=== PATIENT | male | born 1965 | race Caucasian/White ===

== ENCOUNTER 2017-04-08 18:51 | Emergency (ER) | payer SELFPAY ==
[~2017-04-08] VITALS: Ht 162.6 cm; Wt 92.1 kg
[~2017-04-08 18:51] MED LIST: AMLODIPINE BES2.5 M1; CRESTOR10 M1 PO; FLA500 PO; LAC PO; LEVAQUIN500 MG PO; LOT20 PO; LOTENSIN10 MG PO; NOR10 PO; NOVI SQ; PROZ10 PO
[2017-04-08 19:52] LABS: BASOPHIL % 0.4 % (0-2); PLATELET COUNT 231 x10^3mcL (130-400); RED CELL DISTRIBUTION WIDTH 12.9 % (11.5-14.5)
[2017-04-08 19:55] LABS: CALCIUM 8.2 mg/dL (8.5-10.1); CARBON DIOXIDE 27.2 mmol/L (21-32); CHLORIDE SERUM 103 mmol/L (98-107); CREATININE SERUM 1.7 mg/dL (0.7-1.3); GFR1 45 mL/min; GLUCOSE SERUM 264 mg/dL (74-106); POTASSIUM SERUM 3.8 mmol/L (3.5-5.1); SODIUM SERUM 137 mmol/L (136-145)
[2017-04-08 20:08] LABS: ALKALINE PHOSPHATASE 137 U/L (46-116); ALT/SGPT 18 U/L (16-63); AST/SGOT 17 U/L (15-37); BILIRUBIN TOTAL 0.4 mg/dL (0.20-1.00); HDL CHOLESTEROL 50 mg/dL (40-60); TOTAL PROTEIN, SERUM 6.2 g/dL (6.4-8.2)
[2017-04-08 20:12] LABS: ALBUMIN 2.4 g/dL (3.4-5.0); CHOLESTEROL 333 mg/dL (<200); T4(THYROXINE) 4.4 ug/dL (4.7-13.3)
[2017-04-08 21:43] VITALS: BP 175/70
== END 2017-04-08 21:43 | disposition home or self-care (01) ==
LOC: ED 18:51
PROVIDERS: Emergency Medicine
DX: R41.82 Altered mental status, unspecified (principal); F03.90 Unspecified dementia, unspecified severity, without behavioral disturbance, psychotic disturbance, mood disturbance, and anxiety; E11.65 Type 2 diabetes mellitus with hyperglycemia; I10 Essential (primary) hypertension; Z79.4 Long term (current) use of insulin
CPT/HCPCS: 82962; G0480; Q0092

== ENCOUNTER 2018-12-19 11:51 | Inpatient (IN) | payer OTHER ==
[~2018-12-19] VITALS: Ht 170.2 cm; Wt 76.7 kg
[~2018-12-19 11:51] MED LIST changes: +LIPITOR40 MG PO; +LOP50 PO; +METFORMIN HCL850 MG PO; +NOR5 PO
[2018-12-19 13:00] VITALS: Ht 170.2 cm; Wt 76.7 kg
[2018-12-19 15:24] LABS: BASOPHIL % 0.4 % (0-2); PLATELET COUNT 279 x10^3mcL (130-400)
[2018-12-19 15:42] LABS: CALCIUM 8.4 mg/dL (8.5-10.1); CARBON DIOXIDE 30.6 mmol/L (21-32); CREATININE SERUM 1.7 mg/dL (0.7-1.3); POTASSIUM SERUM 4.2 mmol/L (3.5-5.1)
[2018-12-19 15:46] LABS: BILIRUBIN TOTAL 0.1 mg/dL (0.20-1.00); T4(THYROXINE) 4.7 ug/dL (4.7-13.3)
[2018-12-19 16:17] LABS: microscopic required? YES; urine erythrocyte TRACE (NEGATIVE)
[2018-12-19 17:40] VITALS: BP 160/93
[2018-12-19 18:18] VITALS: BP 160/93
[2018-12-19 19:00] VITALS: BP 168/66
[2018-12-19 19:09] VITALS: BP 172/86
[2018-12-19 21:24] VITALS: BP 166/86
[2018-12-19] MEDS ORDERED: LAXATIVE5 M1 PR (21:50)
[2018-12-19] MEDS ORDERED: OMEPRAZOLE40 M1 GT (21:51)
[2018-12-19] MEDS ORDERED: LISINOPRIL10 MG GT (21:52)
[2018-12-19] MEDS ORDERED: COL-RITE250 MG GT (21:53)
[2018-12-20 00:02] VITALS: BP 144/90
[2018-12-20 05:45] VITALS: BP 148/87
[2018-12-20 06:27] LABS: CALCIUM 7.9 mg/dL (8.5-10.1); CARBON DIOXIDE 26.9 mmol/L (21-32); CREATININE SERUM 1.7 mg/dL (0.7-1.3); POTASSIUM SERUM 3.9 mmol/L (3.5-5.1)
[2018-12-20 07:07] LABS: BASOPHIL % 0.5 % (0-2); PLATELET COUNT 230 x10^3mcL (130-400); RED CELL DISTRIBUTION WIDTH 13.8 % (11.5-14.5)
[2018-12-20 08:00] VITALS: BP 145/83
[2018-12-20 12:52] VITALS: BP 145/81
[2018-12-20 16:03] VITALS: BP 150/70
[2018-12-20 20:34] VITALS: BP 130/82
[2018-12-21 05:23] VITALS: BP 154/82
[2018-12-21 08:34] VITALS: BP 148/81
[2018-12-21 13:35] VITALS: BP 147/89
[2018-12-21 15:56] VITALS: BP 150/94
[2018-12-21 17:40] VITALS: BP 150/94
[2018-12-21] MEDS ORDERED: AUG250L GT (17:50)
[2018-12-21] MEDS ORDERED: VENTOLIN H0.09 MG/A1 INH (17:51)
== END 2018-12-21 18:54 | disposition home health service (06) | DRG 137 ==
LOC: ED 11:51 → DU 16:54
PROVIDERS: Emergency Medicine; ADMIT Internal Medicine
DX: J69.0 Pneumonitis due to inhalation of food and vomit (principal); J96.01 Acute respiratory failure with hypoxia; E11.22 Type 2 diabetes mellitus with diabetic chronic kidney disease; N18.3 Chronic kidney disease, stage 3 (moderate); I12.9 Hypertensive chronic kidney disease with stage 1 through stage 4 chronic kidney disease, or unspecified chronic kidney disease; E78.00 Pure hypercholesterolemia, unspecified; J45.909 Unspecified asthma, uncomplicated; D64.9 Anemia, unspecified; Z66 Do not resuscitate; Z93.1 Gastrostomy status; Z74.01 Bed confinement status; Z79.84 Long term (current) use of oral hypoglycemic drugs; I69.354 Hemiplegia and hemiparesis following cerebral infarction affecting left non-dominant side; Z90.49 Acquired absence of other specified parts of digestive tract; Z83.3 Family history of diabetes mellitus; Z23 Encounter for immunization
CPT/HCPCS: 36600; 82962; 83880; 90658; 90732; 92526-GN; 92610; J1644; J2543; J7030; J7050; J7620; J7626; Q0092

== ENCOUNTER 2019-06-19 06:50 | Day surgery (SDC) | payer OTHER ==
[~2019-06-19] VITALS: Ht 165.1 cm; Wt 68.0 kg
[~2019-06-19 06:50] MED LIST changes: +AUG250L GT; +COL-RITE250 MG GT; +LAXATIVE5 M1 PR; +LISINOPRIL10 MG GT; +OMEPRAZOLE40 M1 GT; +VENTOLIN H0.09 MG/A1 INH
[2019-06-19 07:29] VITALS: BP 171/103
[2019-06-19 10:18] VITALS: BP 185/106
== END 2019-06-19 09:45 | disposition home or self-care (01) ==
LOC: DS 06:50 → OR 08:00 → GI 08:00 → DS 09:45
PROVIDERS: Internal Medicine Gastroenterology
PROC: 0D20XUZ Change Feeding Device in Upper Intestinal Tract, External Approach (ICD-10-PCS; principal; 2019-06-19 08:00)
DX: K94.23 Gastrostomy malfunction (principal); I69.391 Dysphagia following cerebral infarction; I69.354 Hemiplegia and hemiparesis following cerebral infarction affecting left non-dominant side; R13.10 Dysphagia, unspecified; F01.50 Vascular dementia, unspecified severity, without behavioral disturbance, psychotic disturbance, mood disturbance, and anxiety; I10 Essential (primary) hypertension; E11.9 Type 2 diabetes mellitus without complications; Z99.3 Dependence on wheelchair; Z90.49 Acquired absence of other specified parts of digestive tract; Z68.25 Body mass index [BMI] 25.0-25.9, adult
CPT/HCPCS: 43760

== ENCOUNTER 2020-05-31 07:35 | Inpatient (IN) | payer OTHER ==
[~2020-05-31] VITALS: Ht 170.2 cm; Wt 60.0 kg
[2020-05-31 07:36] VITALS: Ht 170.2 cm; Wt 60.0 kg
--- NOTE | 2020-05-31 07:45 | NUR ---
PT BIBA/FIRE C/O SOB, PER [facility] CONTA[facility]ED [facility], PT WITH RESPIRATORY DISTRESS, PER FAMILY PT WAS BREATHING FAST, ACCORDING TO [facility], PT WAS ADMITTED TO [facility] 8 DAYS AGO WITH A DIAGNOSES OF PNEUMONIA, RALES NOTED UPON AUSCULATION, RR 35 ON SCENE WITH A BS OF 46, PT 02 SAT AT 35%-42% RA, PLACED ON HIGH OXYGEN FLOW, 02 SAT INCREASED TO 94%, GLUCAGON WAS ADMINISTERED ON SCENCE, PT HAS A HX OF [facility], DM, BED-BOUND, TO COME WITH MEDICATION LIST, PT ALSO NOTED TO BE RECEIVING DIALYSIS, UKNOWN OF WHAT DAYS AT THIS TIME, DIALYSIS SHUNT NOTED ON RIGHT UPPER CHEST, G TUBE NOTED ON MID ABDONINAL REGION, UPON ARRIVAL, PT PLACED IN T1, RT AT BEDSIDE WITH BIPAP, IV ACESS UNOBTAINABLE, MADE AWARE, BS UPON ARRIVAL 39, MADE AWARE, CURRENT RR 32, 02 SAT 100% ON BIPAP, SAFETY PRECAUTIONS IN PLACE, WILL MONITOR,
--- NOTE | 2020-05-31 07:46 | NUR ---
PER [facility], IT WAS REPORTED THAT PT WAS SWABBED FOR COVID AND HAS A NEGATIVE RESULT, DATE AND TIME OF SWAB UNKNOWN, STATES SOMETIME LAST WEEK,
--- NOTE | 2020-05-31 07:49 | NUR ---
DR KIRKLAND AND RT AT BEDSIDE WITH ABG DRAW
--- NOTE | 2020-05-31 07:53 | NUR ---
DR KIRKLAND AT BEDSIDE WITH ULTRASOUND GUIDED IV INSERTION, UNSUCCESSFUL, REQUESTING FOR CENTRAL LINE SET UP, ORDERS CARRIED OUT
--- NOTE | 2020-05-31 08:13 | NUR ---
DR KIRKLAND AT BEDSIDE WITH CENTRAL LINE INSERTION
--- NOTE | 2020-05-31 08:42 | NUR ---
CENTRAL LINE SUCCESSFUL, 7 FR, 3 LUMEN, 20 CM CATHETER, TO THE LEFT SUBCLAVIAN, VERBAL ORDER FOR X RAY, NICOL HIGHTOWER CONTACTED X RAY STAT,
[2020-05-31 09:13] LABS: PLATELET COUNT 301 x10^3mcL (130-400)
[2020-05-31 09:21] LABS: RED CELL DISTRIBUTION WIDTH 14.9 % (11.5-14.5)
--- NOTE | 2020-05-31 10:01 | NUR ---
ALL WOUNDS DOCUMENTED AND PICTURES TAKEN. PRESSURE ULCER NOTED TO B/L HIPS AND SACRAL. SCAB NOTED TO MIDDLE BACK AND RIGHT HEAL. OPTIFOAM APPLIED TO LEFT HIP, SACRAL AND B/L HEALS. PRESSURE REDISTRIBUTED TO RIGHT SIDE, LEFT ARM AND B/L HEALS WITH PILLOW. DR. KIRKLAND MADE AWARE OF WOUND. FOUL SMELL NOTED TO RIGHT HIP PRESSURE ULCER.
--- NOTE | 2020-05-31 10:04 | NUR ---
PER , NO CHEST COMPRESSION OR INTUBATION. WILL HAVE SIGN FORM. OUTSIDE AT THIS TIME WAITING TO SEE PT. DR. KIRKLAND AWARE OF 'S WISHES
[2020-05-31 10:06] LABS: UA SPECIFIC GRAVITY 1.015 (1.005-1.035); microscopic required? YES; urine erythrocyte 3+ (NEGATIVE)
[2020-05-31 10:28] LABS: BAND NEUTROPHIL 15 % (0-10); MONOCYTE 2 % (0-7); SEGMENTED NEUTROPHILS 81 % (37-75); rbc morphology (normal/abnorm) ABNORMAL (NORMAL)
--- NOTE | 2020-05-31 10:28 | NUR ---
AT BEDSIDE, SIGNED POLST FORM. STATED PT WAS DOING GOOD LAST NIGHT THEN AFTER 0700 TODAY STARTED LABOR BREATHING AND O2 WENT DOWN TO 35%. STATES PT HAS BEEN VERY FLEMMY AND COUGHING OVER PAST 4 DAYS. AT BASELINE PT IS UNABLE TO SPEAK D/T PAST CVA AND IS NORMALLY UNABLE TO FOLLOW COMMANDS. PER , PT HAS A FISTULA TO RIGHT FOREARM THAT WAS PUT IN IN JANUARY BUT RIGHT SUBCLAVIAN IS WHAT IS CURRENLTY BEING USED FOR DIALYSIS. LAST DIALYSIS WAS YESTERDAY. WILL CONTINUE TO MONITOR.
[2020-05-31 10:29] LABS: PLATELET MORPHOLOGY PLATELETS NORMAL
[2020-05-31 10:42] LABS: CALCIUM 7.6 mg/dL (8.5-10.1); CARBON DIOXIDE 25.1 mmol/L (21-32); CREATININE SERUM 2.1 mg/dL (0.7-1.3); POTASSIUM SERUM 3.3 mmol/L (3.5-5.1)
[2020-05-31 10:47] LABS: ALBUMIN 1.1 g/dL (3.4-5.0); BILIRUBIN TOTAL 0.4 mg/dL (0.20-1.00); TOTAL PROTEIN, SERUM 5.5 g/dL (6.4-8.2)
--- NOTE | 2020-05-31 11:31 | NUR ---
TURNED AND REPOSITIONED PT TO LEFT SIDE. PRESSURE REDISTRIBUTED PILLOW TO SCARAL, B/L ELBOWS AND B/L HEALS. PT LOOKS TO BE IN NO ACUTE DISTRESS AT THIS TIME. WILL CONTINUE TO MONITOR.
[2020-05-31] MEDS ORDERED: CLONIDINE HYDR0.1 M1 PO (12:59)
[2020-05-31] MEDS ORDERED: HYDRALAZINE HCL25 MG PO (13:00)
[2020-05-31] MEDS ORDERED: METOPROLOL TART25 M1 PO (13:00)
[2020-05-31] MEDS ORDERED: ADALAT CC30 MG PO (13:01)
[2020-05-31] MEDS ORDERED: MICROZIDE12.5 MG PO (13:01)
--- NOTE | 2020-05-31 14:24 | NUR ---
PT NOTED RESTING ON RIGHT SIDE IN ER NEPTALI FLORES AT THIS TIME, NO AD NOTED. SIDE RAILS UP X 2 FOR SAFETY. WILL CONTINUE TO MONITOR.
--- NOTE | 2020-05-31 15:07 | NUR ---
TURNED AND REPOSITIONED PT, PT TURNED TO LEFT SIDE. POSITIONED WITH PILLOW AND REDISTRIBUTED WITH PILLOW UNDER B/L HEALS AND ELBOW. PT LOOKS TO BE IN NO ACUTE DISTRESS AT THIS TIME. WILL CONTINUE TO MONITOR.
--- NOTE | 2020-05-31 17:57 | NUR ---
TURNED AND REPOSITIONED PT WITH PILLOW. TURNED PT TO LEFT SIDE WITH PILLOW. B/ HEALS AND ELBOWS REDISTRIBUTED WITH PILLOW. MADE PT COMFORTABLE IN BED. PT LOOKS TO BE IN NO ACUTE DISTRESS AT THIS TIME. WILL CONTINUE TO MONITOR.
--- NOTE | 2020-05-31 19:17 | NUR ---
RECEIVED PT REPORT FROM DOMINIQUE BRIAN. I WILL NOW ASSUME PRIMARY CARE OF THE PT
--- NOTE | 2020-05-31 19:20 | NUR ---
ENDORSED TO NIGHT NURSE.
--- NOTE | 2020-05-31 19:24 | NUR ---
PT LAYING ON RT SIDE IN ED GURNEY THIS TIME. PT HAS PILLOWS UNDER BONY PROMINENCES. PT IS ABLE TO OPEN HIS EYES BUT DOES NOT SPEAK OR FOLLOW COMMANDS. PT IS ON BIPAP AT THIS TIME. PT APPEARS TO BE TOLERATING BIPAP WELL, NO GRIMACING NOTED. TUYET CHEST RISE AND FALL NOTED. NO MEDICATIONS ARE RUNNING AT THIS TIME, AWAITING ADMITTING ORDERS.
--- NOTE | 2020-05-31 21:37 | NUR ---
NOTED PTS BP IS NOT ELEVATED AT THIS TIME, WILL HOLD BP MEDICATION. AND NOTIFY ADMITTING
--- NOTE | 2020-05-31 21:39 | NUR ---
PT REPOSITIONED FOR COMFORT. PT MAKES MOANING NOISES WHILE REPOSITIONING. PT IS ALERT BUT DOES NOT RESPOND OR FOLLOW COMMANDS. PT TOLERATING BIPAP WELL. RESPS ARE E/U. TUYET CHEST RISE AND NOTED. WILL CONTINUE TO MONITOR
--- NOTE | 2020-05-31 21:56 | NUR ---
SPOKE WITH DR ZEPEDA ABOUT PTS BP MEDICATION. INFORMED THE DR THAT THE PTS BP IS WITHIN NORMAL LIMITS AND HAS BEEN TRENDING LOW. WE BOTH AGREED TO HOLD THE MEDICATIONS AT THIS TIME
--- NOTE | 2020-05-31 23:40 | NUR ---
PT REPOSITIONED FOR COMFORT AND TO PREVENT PRESSURE ULCERS. PT MOVED TO LEFT SIDE. PILLOWS PLACED UNDER TONYA PROMINENCES. PT TOLERATING BIPAP WELL. UTYET CHEST RISE AND FALL NOTED. COMFORT MEASURES IN PLACE. WILL CONTINUE TO MONITOR
--- NOTE | 2020-06-01 00:20 | NUR ---
CALLED RESIDENT PEDIATRIC GENETICIST, SPOKE TO DR LIMON, TO CLARIFY ZOSYN 4.5GM ORDER. REPORTS THAT SHE WILL CALL BACK TO CLARIFY ORDER.
--- NOTE | 2020-06-01 02:45 | NUR ---
PT IS RESTING IN ED GURNEY STILL CONTINURING ON BIPAP. PT IS TOLERATING BIPAP WELL. BEIL CHEST RISE AND FALL NOTED. PT IS ALERT WHEN STIMULATED WITH TOUCH AND VOICE BUT DOES NOT RESPOND.
--- NOTE | 2020-06-01 03:17 | NUR ---
SPOKE WITH RESIDENT, DR LIMON, AND I WAS INFORMED THAT THE ZOZYN ORDER WITH NOW BE D/C.
--- NOTE | 2020-06-01 04:04 | NUR ---
SHIRA BRIAN AND MYSELF REPOSITIONED THE PT ONTO THE PT LEFT SIDE. PT HAS PILLOWS UNDER TONYA PROMINENCES. TUYET CHEST RISE AND FALL NOTED. WILL CONTINUE TO MONITOR
--- NOTE | 2020-06-01 06:56 | NUR ---
REPOSITIONED PT TO MAINTAIN COMFORT. TUYET CHEST RISE AND FLL NOTED. PT EYES OPEN WITH VERBAL STIMULI, BUT PT DOES NOT RESPOND. WILL CONTINUE TO MONITOR
--- NOTE | 2020-06-01 07:14 | NUR ---
RECEIVED REPORT FROM SNEHAL YANG FOR CONTINUED CARE OF PATIENT.
--- NOTE | 2020-06-01 09:09 | NUR ---
PATIENT REPOSITIONED WITH PILLOWS FOR COMFORT. NO SS OF DISTRESS NOTED. WILL CONTINUE TO MONITOR.
[2020-06-01 09:18] LABS: CALCIUM 8.2 mg/dL (8.5-10.1); CARBON DIOXIDE 23.4 mmol/L (21-32); CREATININE SERUM 2.5 mg/dL (0.7-1.3); MAGNESIUM 2.1 mg/dL (1.8-2.4); PHOSPHOROUS 3.2 mg/dL (2.5-4.9); POTASSIUM SERUM 3.6 mmol/L (3.5-5.1)
--- NOTE | 2020-06-01 09:21 | NUR ---
SPOKE WITH MRS. ZAVALETA, SHE ADVISED THAT THE RIGHT ARM SWELLING IS DUE TO THE FISTULA PLACED IN JANUARY. ACCORDING TO THE , PATIENTS PCP STATES THAT THE FISTULA IS NOT TO BE USED DUE TO HIM BEING EXTREMELY WEAK. HE GOES TO DIALYSIS [place] AND [place]. PROVIDED AND UPDATE TO AND SHE WAS APPRECIATIVE OF THE INFORMATION.
[2020-06-01 09:29] LABS: PLATELET COUNT 352 x10^3mcL (130-400); RED CELL DISTRIBUTION WIDTH 15.4 % (11.5-14.5)
--- NOTE | 2020-06-01 09:58 | NUR ---
LEFT MESSAGE FOR TO RETURN MY CALL: REGARDING GT ADAPTOR
--- NOTE | 2020-06-01 10:00 | NUR ---
PATIENT RESTING IN A POSITION OF COMFORT. NO DISTRESS NOTED.
--- NOTE | 2020-06-01 10:17 | NUR ---
MEDICATED PER MD ORDERS- SEE EMR
--- NOTE | 2020-06-01 10:30 | NUR ---
PATIENTS BROUGHT SYRINGE FOR PATIENTS GT. PLEASE DON'T THROW AWAY-
--- NOTE | 2020-06-01 11:45 | NUR ---
PATIENT REPOSITIONED FOR COMFORT-- VSS, NAD NOTED.
--- NOTE | 2020-06-01 12:04 | NUR ---
MEDICATED PER MD ORDERS- SEE EMR
--- NOTE | 2020-06-01 14:00 | NUR ---
PATIENT REPOSITIONED IN A POSITION OF COMFORT. NO DISTRESS NOTED. WILL CONTINUE TO MONITOR.
[2020-06-01 14:30] LABS: BAND NEUTROPHIL 13 % (0-10); MONOCYTE 2 % (0-7); SEGMENTED NEUTROPHILS 81 % (37-75)
[2020-06-01 14:31] LABS: PLATELET MORPHOLOGY PLATELETS NORMAL; rbc morphology (normal/abnorm) ABNORMAL (NORMAL)
--- NOTE | 2020-06-01 15:34 | NUR ---
PATIENT SLEEPING, EQUAL CHEST RISE AND FALL-- WILL CONTINUE TO MONITOR. VSS, NAD NOTED.
--- NOTE | 2020-06-01 16:12 | NUR ---
PROVIDED REPORT TO DR PETERSON, PULMONOLGY ON PATIENT STATUS.
--- NOTE | 2020-06-01 18:11 | NUR ---
PATIENT REPOSITIONED TO A POSITION OF COMFORT. PILLOWS PLACED UNDER BONY PROMINENCES AND HEELS LIFTED TO AVOID ADDITIONAL PRESSURE ULCERS. VSS, NAD NOTED, WILL CONTINUE TO MONITOR.
--- NOTE | 2020-06-01 19:12 | NUR ---
PROVIDED REPORT TO SNEHAL YANG FOR CONTINUED CARE OF PATIENT.
--- NOTE | 2020-06-01 19:15 | NUR ---
RECEIVED PT REPORT FROM SKYLAR BRIAN. I WILL NOW ASSUME PRIMARY CARE OF THE PT
--- NOTE | 2020-06-01 20:10 | NUR ---
GAVE PT REPORT TO SNEHAL MARRUFO IN THE ICU TO ASSUME PRIMARY CARE OF THE PT
--- NOTE | 2020-06-01 20:16 | NUR ---
SPOKE WITH PTS AND INFORMED HER ABOUT PT MOVING TO ICU AND CARE UPDATE. PT VERBALIZED UNDERSTANDING
--- NOTE | 2020-06-01 20:55 | NUR ---
PT TAKEN TO ICU BED 8 VIA ED SANDRA. PT ESCORTED BY MYSELF AND LORIN EMT. NO INCIDENCE NOTED DURING TRANSPOT
--- NOTE | 2020-06-01 21:00 | NUR ---
RECEIVED PT FROM ER VIA GURNEY ACCOMPANIED BY RN AND EMT. PT WAS TRANSFERRED TO ICU BED 8 WITH NO COMPLICATIONS. PT CONNECTED TO FULL MARINE FITTER/CONTINOUS PULSE OXIMETRY, VITALS READING: NIBP 117/69 MAP 95, HR 77, RR 14, SPO2 100%, RECTAL TEMP 94.5. PT IS NONVERBAL AT BASELINE. UNABLE TO FOLLOW SIMPLE COMMANDS/MAKE NEEDS KNONW. OPENS EYES TO TACTILE STIMULI, UNABLE TO TRACK. LEFT SUBCLAVIAL CVC, TLC, INTACT/SECURED, DRESSING CDI. PT'S BREATHING IS E/U ON 15 LPM VIA NONREBREATHER. LUNGS SOUND DIMIN BILAT. SYMMETRICAL CHEST EXPANSION NOTED. NO S/S OF RESP DISTRESS NOTED. SKIN IS COOL AND DRY. +4 EDEMA NOTED TO RUE. PT BEDBOUND, TOTAL CARE. ABD IS SOFT/FLAT, NONTENDER TO PALPATION. BOWEL SOUNDS ACTIVE X4 QUADRANTS. PT HAD A SMALL SOFT BROWN BM, PERICARE PROVIDED. PEG NOTED TO LUQ. F/C INTACT/SECURED, DRAINING VIA GRAVITY WITH BROWN CLOUDY COLORED URINE. RIGHT UPPER CHEST DIALYSIS PORT, DRESSING CDI. PRESSURE ULCER NOTED TO SACRAL AREA, RIGHT HIP, AND LEFT HIP, OPTIFOAM PLACED. DTI NOTED TO BILAT HEELS, OPTIFOAM IN PLACE, FLEX BOOTS IN PLACE, ISOFLEX MATTRESS IN PLACE. EXTREMITIES OFFLOADED FOR PRESSURE RELIEF. BED IN LOW POSITION. CALL LIGHT IN REACH.
[2020-06-01 21:40] VITALS: BP 117/69
[2020-06-01 21:54] VITALS: BP 104/64
[2020-06-01 23:00] VITALS: BP 120/70
--- NOTE | 2020-06-02 01:30 | NUR ---
PT IS SLEEPING, EASILY AROUSABLE. NO S/S OF ACUTE DISTRESS NOTED. NONREBREATHER TITRATED TO 10 LPM. TOLERATING WELL. SPO2 99%
[2020-06-02 03:05] VITALS: BP 126/69
--- NOTE | 2020-06-02 03:45 | NUR ---
PT PLACED ON SIMPLE MASK @ 6LPM WITH SPO2 READING 100%. WILL CONT TO MONITOR
--- NOTE | 2020-06-02 05:00 | NUR ---
PT PLACED ON 2 LPM VIA NC. PT'S SPO2 97%. NO S/S OF RESP DISTRESS NOTED. TOLERATING WELL
--- NOTE | 2020-06-02 05:50 | NUR ---
UNABLE TO CONNECT TUBE FEEDING TO PEG TUBE WITHOUT ADAPTOR. PT BOLUSED WITH 60 ML OF NEPRO TUBE FEEDING FOLLOWED BY 60 CC OF WATER.
[2020-06-02 06:09] LABS: BASOPHIL % 0.1 % (0-2); PLATELET COUNT 332 x10^3mcL (130-400)
[2020-06-02 06:27] LABS: RED CELL DISTRIBUTION WIDTH 15.3 % (11.5-14.5)
[2020-06-02 07:06] LABS: CARBON DIOXIDE 22.3 mmol/L (21-32); CREATININE SERUM 2.7 mg/dL (0.7-1.3); MAGNESIUM 2.1 mg/dL (1.8-2.4); PHOSPHOROUS 3.7 mg/dL (2.5-4.9); POTASSIUM SERUM 3.6 mmol/L (3.5-5.1)
--- NOTE | 2020-06-02 07:10 | NUR ---
REPORT GIVEN TO ABIGAIL BRIAN FOR CONTINUITY OF CARE. ALL QUESTIONS/CONCERNS ADDRESSED. ENDORSING ALL CARE
[2020-06-02 07:12] LABS: ALBUMIN 1.1 g/dL (3.4-5.0); C REACTIVE PROTEIN 13.4 mg/dL (<=0.9)
[2020-06-02 12:15] VITALS: BP 117/69
[2020-06-02 14:00] VITALS: BP 119/71
--- NOTE | 2020-06-02 14:30 | NUR ---
MD JAVIER AT BEDSIDE, NEW ORDERS FOR HD TOMORROW (06/03)
--- NOTE | 2020-06-02 14:38 | NUR ---
LATE ENTRY MD TIRADO & RESIDENT TEAM AT BEDSIDE, NO NEW ORDERS AT THIS TIME, AWAITING TRANSFER TO [facility]
--- NOTE | 2020-06-02 17:26 | NUR ---
MD VIZCARRA UPDATED VIA TELEPHONE, NO NEW ORDERS AT THIS TIME
--- NOTE | 2020-06-02 18:29 | NUR ---
MD BROWN AT BEDSIDE AND UPDATED ON PT STATUS.
--- NOTE | 2020-06-02 19:08 | NUR ---
REPORT GIVEN TO TREY BRIAN AND ALL QUESTIONS ANSWERED.
--- NOTE | 2020-06-02 19:10 | NUR ---
RECEIVED REPORT FROM COBY BRIAN. WILL RESUME CARE.
[2020-06-02 19:20] VITALS: BP 129/74
--- NOTE | 2020-06-02 19:20 | NUR ---
RECEIVED PT RESPONSIVE TO VERBAL STIMULI, UNABLE TO FOLLOW COMMANDS. PUPILS 3MM SLUGGISH. NONVERBAL AT BASELINE. R SLUCLAVIA IVORY AND L SUBCLAVIA CVC WNL, DRESSINGS CDI. NO REDNESS, DRAINAGE, OR SWELLING NOTED TO EENT. ON 2L VIA NC, O2 SAT 98%. LUNG SOUNDS HAVE CRACKLES BILATERALLY. ON 2L VIA NC, O2 SAT 98%. LUNG SOUNDS HAVE CRACKLES BILATERALLY. S1S2 AUSCULTATED. NO S/SX OF CHEST PAIN. CAP REFILL <3 SEC. +3 PTTING EDEMA TO RUE. TRACE TO ALL OTHER EXTREMITIES. PULSES PALPABLE. GENERALIZED WEAKNESS. BS HYPOACTIVE X 4. NO N/V. NO BM AT THIS TIME. GTUBE IN PLACE. BARRAGAN CATHETER IN PLACE DRAINING VIA GRAVITY WITH NO URINE OUTPUT NOTED. OPTIFOAM TO BOTH HIPS AND SACRAL AREA. BOLSTER BOOTS TO LOWER EXTREMITIES. BED IN LOW POSITION. CALL LIGHT WITHIN REACH.
--- NOTE | 2020-06-02 21:00 | NUR ---
RECEIVED REPORT FROM COBY BRIAN. WILL RESUME CARE.
[2020-06-02 23:36] VITALS: BP 139/80
--- NOTE | 2020-06-03 03:10 | NUR ---
ASSESSED PT. NAD NOTED. NO S/SX OF ANY PAIN. BREATHING E/U. PT REMAINS ON 2L NC. WILL CONTINUE TO MONITOR.
--- NOTE | 2020-06-03 05:33 | NUR ---
AGENCY MANAGER AT BEDSIDE FOR BLOOD DRAW.
[2020-06-03 06:24] LABS: PLATELET COUNT 310 x10^3mcL (130-400)
[2020-06-03 06:43] LABS: CALCIUM 7.8 mg/dL (8.5-10.1); CARBON DIOXIDE 25.2 mmol/L (21-32); CREATININE SERUM 3.1 mg/dL (0.7-1.3); MAGNESIUM 2.1 mg/dL (1.8-2.4); PHOSPHOROUS 3.6 mg/dL (2.5-4.9); POTASSIUM SERUM 3.7 mmol/L (3.5-5.1)
[2020-06-03 06:48] LABS: C REACTIVE PROTEIN 12.4 mg/dL (<=0.9)
[2020-06-03 06:53] LABS: BASOPHIL % 0 % (0-2); RED CELL DISTRIBUTION WIDTH 15.1 % (11.5-14.5)
[2020-06-03 08:26] VITALS: BP 133/82
--- NOTE | 2020-06-03 10:45 | NUR ---
WOUND CARE EVALUATION NOTE: REASON FOR EVALUATION: PRESSURE ULCER WOUNDS SKIN ASSESSMENT DONE WITH THIS 54 Y/O MALE PT ADMITTED TO [facility] WITH INITIAL DX OF SOB . PT IS COVID POSITIVE. PAST MEDICAL HX INCLUDES CVA , HTN, ESRD AND CHRONIC MULTIPLE PRESSURE ULCERS. ABOVE INFORMATION OBTAINED FROM ADMISSION H&P. SKIN IS WARM AND DRY, RIGHT UPPER EXTRMITY +2 EDEMA, BLE NO HAIR GROWTH, NO EDEMA. DORSAL PEDAL PULSES PRESENT AND NORMAL. INCONTINENT OF BOWEL,POC DISCUSSED WITH DR. TIRADO /DR. BROWN AND PRIMARY RN. RECOMMEND SURGEON CONSULT FOR WOUND DEBRIDEMENT. PER DR. TIRADO/DR. BROWN YESTERDAY FAMILY WISH TO HAVE COMFORT CARE, DOCTORS WILL DISCUSS WITH FAMILY. INTEGUMENTARY: - SACRALCOCCYX PRESSURE ULCER INJURY STAGE 4 7X5X1 CM WOUND BED PALE PINK SCATTERED YELLOW SLOUGH, SMALL AMOUNT SEROSANGANOUS DRAINAGE, ALOK-WOUND SKIN MOIST INTACT SURROUNDING REDNESS EXTENDED TO R/L BUTTOCKS INDICATED FURTHER DAMAGE -RIGHT TROCHANTER PRESSURE ULCER INJURY UN-STAGEABLE 9X5X1.3CM, WOUND BED 40 % SOFT YELLOW SLOUGH, MILD ODOR, SMALL AMOUNT PURULENT DRAINAGE, ALOK-WOUND SKIN MOIST INTACT SURROUNDING REDNESS INDICATED FURTHER DAMAGE - RIGHT HEEL PRESSURE ULCER INJURY 100% BLACK ESCHAR 2X3CM, ALOK-WOUND SKIN MUSHY AND SURROUNDING REDNESS INDICATED FURTHER DAMAGE - RIGHT MEDIAL HEEL PRESSURE ULCER INJURY DTI 1.5X1.5CM 100% MAROON COLOR, ALOK-WOUND SKIN MUSHY AND SURROUNDING REDNESS INDICATED FURTHER DAMAGE -LEFT TROCHANTER PRESSURE ULCER INJURY UN-STAGEABLE [id number], WOUND BED 30 % SOFT YELLOW SLOUGH, MILD ODOR, SMALL AMOUNT PURULENT DRAINAGE, ALOK-WOUND SKIN MOIST INTACT SURROUNDING REDNESS INDICATED FURTHER DAMAGE -LEFT HEEL PRESSURE ULCER INJURY UN-STAGEABLE 0.5X0.5CM BROWN SCAB, ALOK WOUND SKIN INTACT -BLANCHABLE REDNESS TO LEFT AND RIGHT ELBOWS RECOMMENDATIONS: -CLEANSE LEFT HEEL, SACRALCOCCYX, RIGHT AND LEFT TROCHANTERS WOUNDS WITH NS, PAT DRY PACK WITH SOAKED BETADINE 4X4 AND COVER WITH DRY DRESSING QD AND PRN IF SOILING -APPLY SKIN PREP TO RIGHT MEDIAL HEEL BID AND NACHO. APPLY HEEL RAISER TO BOTH HEELS AT ALL TIMES -OFFLOAD BILATERAL HEELS BY PLACING PILLOWS UNDER CALVES UNLESS OTHERWISE CONTRAINDICATED -PRESSURE REDISTRIBUTION SURFACE THERAPY -TURN AND REPOSITION Q2H, OFFLOAD SACRALCOCCYX AND BUTTOCKS BY TURNING RIGHT AND LEFT -CONTINUE TO FOLLOW RD RECOMMENDATIONS PLEASE CONTACT WOUND CARE NURSE FOR ANY QUESTION AND CHANGE OF WOUND CONDITION
--- NOTE | 2020-06-03 11:40 | NUR ---
DR PETERSON AT BEDSIDE TO ASSESS PATIENT. UPDATES PROVIDED BY NURSING.
[2020-06-03 12:28] VITALS: BP 145/82
--- NOTE | 2020-06-03 12:56 | NUR ---
REPORT GIVEN TO KENDRA RN, PT TO BE TRANSFERRED TO 222B
--- NOTE | 2020-06-03 13:33 | NUR ---
PATIENT BEING TRANSFERRED TO ROOM 222B. PATIENT REMOVED FROM ICU MONITOR #8 AND PUT ON TELE. PATIENT TRANSFERRED TO TELE BED WITHOUT INCIDENT. REPORT CALLED TO SNEHAL GARDNER BY QUIRINO BRIAN. QUESTIONS AND CONCERNS ADDRESSED. HUBER MADE AWARE OF PATIENT TRANSFER.
--- NOTE | 2020-06-03 14:00 | NUR ---
PATIENT TRANSFERED FROM ICU, ARRIVED VIA HOSPITAL BED, PATIENT AWAKE BUT NON VERBAL AND MINIMALLY REPSONSIVE TO TACTILE STIMULI, LUNG SOUNDS DIMINISHED AT BASES, PULSE OX 99% ON 2LPM O2 VIA NC, PATIENT UNABLE TO AMBULATE, CENTRAL LINE IN LSC PRESENT AND PATENT, ON TELEMTRY, SR 73, BOWEL SOUNDS ACTIVE, G TUNE PRESENT WITH NO RESIDUAL, RUNNING NEPRO @ 40MOL/HR, WOUNDS ON B HIPS AND SACRUM DRESSINGS INTACT, DTI IN B HEELS, PEDAL PULSES PRESENT, +3 EDEMA ON R ARM, BARRAGAN CATHETER IN PLACE, 10ML DARK URINE IN BAG, NO S/SX OF DISTRESS NOTED AT THIS TIME
--- NOTE | 2020-06-03 14:55 | NUR ---
Initial Nutrition Assessment: 222T/B DEMETRICE ZAVALETA 54M HR Nursing triggers: appears underweight/malnourished, Tube feeding Dx: Respiratory failure, pyoglycemia PMHx: CVA x 4, HTN, ESRD PSHx: lauren able to obtain per H and P Labs: (06/03) Na 130L, CL 94L, BG 140H, BUN 77H, Cr 3.1H, GFR 22, Alk ph 505H, WBC 13.6H, H/H 7.9/24L Meds: Catapres, Decadron, heparin sodium, apresoline, hydrochlorothiazide, Lopressor, Vancomycin, Prilosec, Zosyn Diet: TF-nepro at 30 ml/hr fwf 60ml Q6H via GT PO intake since admission: Ht: 170.18cm/67in Wt: 60kg/132lbs BMI: 20.7 Bed scale: unknown IBW: 67.27kg/148lbs %IBW: 89.19% UBW: unknown Age: 54 Food Allergies: NKFA Edema: +3 edema to right arm Last BM: 06/02 per I & O Skin: ulcer noted to both hips and sacrum, DTI to both heels Juma: 11 I and O: (06/03) 816ml, (06/02) 170/200ml = 30ml Per H and P (05/31), This is a 54-year-old male with PMHx of CVA, bedbound with baseline GCS of 10, ESRD on dialysis, and recent admission to [facility] for pneumonia 1 week ago who presented to ED with acute onset respiratory failure. Prior to arrival patient was sating at 50% on room air and was placed on nonrebreather by paramedics with improvement of saturation to 94%. Patient was also found to be hypoglycemic at 27. According to the , he was fine last night and this morning she found him struggling to breathe. is usual caregiver and patient is nonverbal at baseline. Pt was admitted with dx: acute hypoxic respiratory failure, sepsis, CVA/ 4, central line placement, r/o thrombosis of upper extremity, h/o HTN, Gtube, Cholecystectomy, h/o DM RD Note (06/03) Pt was seen awake and lying in bed during visit. Per pt's RN, pt's tube feeding was infusing at 20ml/hr, and pt was tolerating tube feed with GRV=0ml. There was no BM and signs of GI distress according RN. Pt was transferred to RM. 222B later. Pt's current TF regimen at goal rate will provide a volume of 720ml, 1296kcal, 58 g protein, and 523.44ml free water meeting 72% of estimated kcal needs and 80% of estimated protein needs. Problem with: N/V/D/C: none per RN Problems with: Chewing: Swallowing: Pt on TF Current appetite: pt on TF Recent wt change: unknown %wt change: unknown Height: unknown Vitamin/Supplement use: unknown Special diet at home: unknown Physical activity: unknown Nutrition education given (specify specific nutrition education and handout given): not given at this time Food-drug interactions? Education given? n/a Estimated Nutritional Needs Based on current body weight (60kg) Energy: 5334-4848 kcal/day (30-35 kcal/kg for ESRD on HD and wound healing) Protein: 72-84 g/day (1.2-1.4 g/kg for ESRD on HD and wound healing) Fluid: 1L + HD output or per MD Nutrition Diagnosis: 1. Increased energy and protein needs r/t increased kcal and protein expenditure and skin integrity a/e/b pt has ESRD on HD, ulcer to sacrum, and DTI to both heels. 2. Inadequate energy intake r/t insufficient tube feeding infusion a/e/b pt current regimen meeting 72% of estimated kcal needs. Intervention 1. Recommend Nepro at 40ml/hr. At goal rate, it will provide a volume of 960ml, 1728kcal, 78g protein and 698ml free water meeting 96% of estimated kcal needs and 100% of estimated protein needs. 2. Recommend free water flush 50ml Q4H to provided additional 300ml and grand total of 998ml free water. RD will adjust water flush according to HD output and I&O. 3. Recommend Mciheal BID for wound healing Recommendation provided to Dr. Hills, and Dr. Hills acknowledged. Monitor/Evaluate Goal: Pt meeting at least 75% of estimated needs via nutrition support Monitor: Nutrition support tolerance, Labs, GI function, Body weight, skin integrity F/U in 2-3 days as high risk 06/05-
--- NOTE | 2020-06-03 19:13 | NUR ---
PATIENT RESTING COMFORTABLY IN BED, NO C/O PAIN OR DISTRESS AT THIS TIME, WILL ENDORSE CARE TO PM NURSE
[2020-06-03 19:14] VITALS: BP 128/74
--- NOTE | 2020-06-03 20:20 | NUR ---
REC'D PT FROM DAY NURSE. PT RESTING IN BED. NONVERBAL. OPENS EYES TO PAINFUL STIMULI. DOES NOT FOLLOW COMMANDS. UNABLE TO ASSESS ORIENTATION. DROOLING WITH GREEN MUCUS ON R SIDE OF MOUTH. ORAL CARE PROVIDED. BREATHING EVEN/UNLABORED ON 2L NC, SPO2 98%. TELE 30. NO S/SX OF CP. EDDIE PITTING EDEMA. HD IN PROGRESS WITH R UPPER CHEST IVORY CATH. L UPPER CHEST CENTRAL LINE, 3 PORTS FLUSHED AND PATENT AND BLOOD RETURN. DRESSINGS CDI. ABD SOFT/FLAT. NO GRIMACE UPON PALPATION. RUQ PEG INFUSING NEPRO @ 40 ML/HR WITH 60 ML FWF Q6. NO RESIDUAL. BARRAGAN WITH MINIMAL OUTPUT DRAINING TO GRAVITY. GEN WEAKNESS. PASSIVE ROM. STIFF BUE. DRESSINGS TO TUYET HIPS AND SACRUM CDI. CALL LIGHT WITHIN REACH, BED AT LOWEST POSITION, BED ALARM ON. WILL CONTINUE TO MONITOR.
[2020-06-03 20:40] VITALS: BP 99/60
--- NOTE | 2020-06-03 22:33 | NUR ---
HD COMPLETED. 2L OUT. PT TOLERATED PROCEDURE WELL.
--- NOTE | 2020-06-04 00:30 | NUR ---
PT RESTING IN BED WITH EYES CLOSED. BREATHING EVEN/UNLABORED ON 2L NC, SPO2 98%. SUCTIONED WHITE SPUTUM FROM MOUTH AND PROVIDED ORAL CARE. NEPHRO INFUSING @ 40 ML/HR, NO RESIDUAL. AIR MATTRESS APPLIED. PT REPOSITIONED. SOILED WITH STOOL, CLEANED AND CHANGED. SACRAL DRESSING SOILED AND REMOVED. DEEP SACRAL PRESSURE ULCER WITH MOSTLY RED WOUND BED. UNDERMINING. CLEANSED WITH NS AND PATTED DRY. NEW DRESSING APPLIED- THERAHONEY DRESSING, GAUZE, AND OPTIFOAM. CALL LIGHT WITHIN REACH, BED AT LOWEST POSITION.
[2020-06-04 05:25] VITALS: BP 141/79
--- NOTE | 2020-06-04 05:30 | NUR ---
ORAL CARE PROVIDED. PT CLEANSED WITH CHG WIPES AND BARRAGAN WIPES. 40 ML CLOUDY MOSQUERA URINE. DRESSINGS TO TUYET HIPS CHANGED: CLEANSED WITH NS, PACKED WITH BETADINE SOAKED GAUZE, AND OPTIFOAM ON TOP. NO SIGNIFICANT CHANGES DURING SHIFT. PT REMAINS ON 2L NC. CALL LIGHT WITHIN REACH, BED AT LOWEST POSITION. WILL ENDORSE TO DAY NURSE.
--- NOTE | 2020-06-04 06:51 | NUR ---
PT RESTING IN BED WITH EYES CLOSED. OPENS EYES TO TACTILE STIMULI. PUPILS EQUAL AND REACTIVE. UNABLE TO FOLLOW COMMANDS OR MAKE NEEDS KNOWN. TELE 30. NO S/SX OF CP. BREAHTING EVEN/UNLABORED ON 2L NC, SPO2 95%. ABD SOFT/FLAT. NEPHRO INFUSING @ 40 ML/HR WITH 50 ML FWF Q4, 60 ML RESIDUAL REPLACED. BARRAGAN WITH MINIMAL OUTPUT. HD CATH TO R UPPER CHEST CDI, LAST HD 06/03- 2L OUT. R UPPER ARM SHUNT, FAINT BRUIT/THRILL PRESENT. L UPPER CHEST CENTRAL LINE, DRESSING CDI. 3 PORTS FLUSHED AND PATENT WITH BLOOD RETURN. GEN WEAKNESS. BUE STIFF WITH AGUIRRE ROM. BLE PASSIVE ROM. AIR MATTRESS IN PLACE. REPOSITIONING Q2H. HEELS OFFLOADED WITH RAISERS. SQUARE OPTIFOAM TO [place] HEELS. CALL LIGHT WITHIN REACH, BED AT LOWEST POSITION. WILL CONTINUE TO MONITOR.
[2020-06-04 08:01] LABS: C REACTIVE PROTEIN 9.9 mg/dL (<=0.9); CALCIUM 7.7 mg/dL (8.5-10.1); CARBON DIOXIDE 27.7 mmol/L (21-32); CREATININE SERUM 1.9 mg/dL (0.7-1.3); MAGNESIUM 1.9 mg/dL (1.8-2.4); PHOSPHOROUS 1.7 mg/dL (2.5-4.9)
[2020-06-04 08:34] LABS: PLATELET COUNT 239 x10^3mcL (130-400)
[2020-06-04 08:35] LABS: RED CELL DISTRIBUTION WIDTH 15.2 % (11.5-14.5)
[2020-06-04 08:48] VITALS: BP 131/75
[2020-06-04 11:01] LABS: BAND NEUTROPHIL 2 % (0-10); MONOCYTE 3 % (0-7); SEGMENTED NEUTROPHILS 90 % (37-75)
--- NOTE | 2020-06-04 11:01 | NUR ---
RESIDUAL CHECKED PER PROTOCOL: NONE. NEPRO CONTINUES @ 40 ML/HR. ORAL CARE PROVIDED. SPO2 100% ON 1L NC. NC REMOVED. SPO2 98% ON RA. WILL CONTINUE TO MONITOR.
[2020-06-04 11:02] LABS: rbc morphology (normal/abnorm) NORMAL (NORMAL)
--- NOTE | 2020-06-04 11:40 | NUR ---
REC'D CALL FROM DR. URRUTIA. MADE AWARE OF PT'S CXR RESULTS TODAY : MILD INTERVAL WORSENING OF BILATERAL EDEMA/INFILTRATED. ALSO MADE AWARE OF PLAN TO CHANGE ABX TO TOBRAMYCIN. STATED PLAN FOR HD TODAY THEN AGAIN ON TUESDAY TO PUT PT BACK ON HIS HD SCHEDULE.
[2020-06-04 12:32] VITALS: BP 139/80
--- NOTE | 2020-06-04 13:45 | NUR ---
RESUME CARE PT SLEEPING, NO DISTRESS NOTED. TELE SR, HR 87 NOTED. ROOMAIR O2SAT 98% NOTED. DIALYSIS EDWARDS AWARE HD TODAY. CONT TO MONITOR.
--- NOTE | 2020-06-04 14:34 | NUR ---
DR PETERSON AND DR TIRADO AWARE OF ABG BEING CANCELLED. PT ON 2LPM WITH SAT OF 95% AND NO CHANGES TO INDICATE ABG.
--- NOTE | 2020-06-04 15:32 | NUR ---
REPOSITION AND TURN, HOB ELEVATED. ORAL CARE PROVIDED. CONT GT FEEDING AT 40ML/HR, RESIDUAL 3ML. LT SUBCLAVIAN CL X3 LUMEN INTACT AND INFUSING TKO. CONT TO MONITOR.
--- NOTE | 2020-06-04 15:48 | NUR ---
PAGE DR. LEGGETT RE: RT HIP WOUND CULTURE RESISTANT TO TOBRAMYCIN. SPOKE TO ELENA ANSWERING SERVICE LEFT MESSAGE.
[2020-06-04 16:42] VITALS: BP 160/91
--- NOTE | 2020-06-04 18:00 | NUR ---
PATIENT RESTING IN BED COMFORTABLE, OPEN EYES WITH TACTILE STIMULI, TELE #30 SR WITH HR 82 AND O2SAT 100% ROOMAIR NOTED. TOBRAMYCIN IVPB INFUSING AT 50ML/HR, LT SUBCLAVIAN CL INTACT AND PATENT. AWAITING FOR HD. CONT TO MONITOR.
--- NOTE | 2020-06-04 19:23 | NUR ---
DR. LEGGETT AWARE RT HIP WOUND RESISTENT TO TOBRAMYCIN AND ADD MEROPENEM 500MG IV DAILY. ENDORSE CARE TO MATY BRIAN.
--- NOTE | 2020-06-04 19:50 | NUR ---
RECEIVED PT EYES OPEN AND DOESN'T TRACKS.NON-VERBAL.RESPONSIVE TO TACTILE STIMULI.DIMINISHED BREATHSOUNDS.NO COUGHING/CONGESTION NOTED.TOLERATING ROOMAIR @ 100%.GT FEEDING INFUSIGN AND TOLERATING WELL.NO RESIDUAL NOTED.F/C TO CLOUDY URINE.NO S/S OF PAIN OR DISCOMFORT.BP 151/80 MMHG,HR 82.ON DROPLET PRECAUTION FOR + COVID.WILL OBSERVE PROTOCOL.WILL ANTICIPATE ALL NEEDS.WILL CONTINUE TO MONITOR.
[2020-06-04 20:00] VITALS: BP 151/80
--- NOTE | 2020-06-04 21:30 | NUR ---
DIALYSIS ONGOING AT THIS TIME.
--- NOTE | 2020-06-04 22:46 | NUR ---
SEEN BY DR. RAYMOND AND CALLED VITO PERAZA AND OBTAINED CONSENT FOR DEBRIDEMENT TOMORROW AND ALSO OBTAINED CONSENT FOR TRANSFUSION 1 UNIT PRBC AND AGREEABLE.
[2020-06-05] VITALS (8 sets, daily range): BP systolic 133–166; BP diastolic 77–91
--- NOTE | 2020-06-05 | NUR ---
PLACED NPO AT THIS TIME ORDERED.CLAMPED GT.
--- NOTE | 2020-06-05 03:45 | NUR ---
STARTED 1 UNIT PRBC.PREMEDICATED WITH TYLENOL AND BENADRYL ORDERED.WITNESSED BY ANOTHER NURSE.BLOOD# [id number].VSS.BP 142/77 MMHG,HR 83,TEMP 97.3F,O2 SAT @ 100%.WILL CONTINUE TO MONITOR.
--- NOTE | 2020-06-05 04:02 | NUR ---
NO ADVERSE REACTION NOTED FROM TRANSFUSION.VSS.WILL CONTINUE TO MONITOR.
--- NOTE | 2020-06-05 05:59 | NUR ---
MORNING CARE RENDERED,CHLORHEXIDINE WIPES GIVEN.REMAINS NPO.GT CLAMPED.COMPLETED BLOOD TRANSFUSION AND TOLERATED WELL.ALL NEEDS ANTICIPATED AND MET.NO ASE NOTED FROM MERREM AND NEBCIN IV ATB.ON DROPLET PRECAUTION FOR + COVID.GOODHANDWASHING TECHNIQUE OBSERVED.WILL CONTINUE TO MONITOR.
--- NOTE | 2020-06-05 07:39 | NUR ---
RECEIVED PATIENT FROM SNEHAL RUTLEDGE. NOTIFIED THAT PATIENT IS NPO AND TO HAVE SURGICAL DEBRIDEMENT TODAY. CONSENT OBTAINED FROM PATIENT . WILL CHECK IN ON PATIENT DURING AM MEDICATION PASS PATIENT IS IN [place] [id number] ISOLATION UNIT.
[2020-06-05 07:46] LABS: BASOPHIL % 0.3 % (0-2); PLATELET COUNT 219 x10^3mcL (130-400); RED CELL DISTRIBUTION WIDTH 14.5 % (11.5-14.5)
[2020-06-05 08:20] LABS: C REACTIVE PROTEIN 8.5 mg/dL (<=0.9); CALCIUM 8.1 mg/dL (8.5-10.1); CARBON DIOXIDE 27.5 mmol/L (21-32); CREATININE SERUM 1.7 mg/dL (0.7-1.3); MAGNESIUM 1.9 mg/dL (1.8-2.4); PHOSPHOROUS 1.4 mg/dL (2.5-4.9); POTASSIUM SERUM 3.3 mmol/L (3.5-5.1)
--- NOTE | 2020-06-05 18:32 | NUR ---
PATIENT TAKEN DOWN TO SURGERY AND OFF UNIT AT THIS TIME.
--- NOTE | 2020-06-05 19:50 | NUR ---
BACK FROM OR FOR S/P DEBRIDEMENT ON R HEEL.BOTH HIPS AND SACRAL AREA.DRESSING INTACT.NO ACTIVE BLEEDING NOTED.VSS.PLACED TELE MONITORING BACK.BP 150/81 MMHG,HR 78,TEMP 97.0F,O2 SAT @ 99%.WILL CONTINUE TO MONITOR.
--- NOTE | 2020-06-05 21:32 | NUR ---
DUE MEDS ADMINISTERED ORDERED.CHANGED CENTRAL LINE DRESSING AND FLUSHED ALL LINES.REPOSITIONED AT THIS TIME.WILL CONTINUE TO MONITOR.
--- NOTE | 2020-06-06 04:40 | NUR ---
PT EYES OPEN MOST OF THE NIGHT.BREATHING EASY AND NON-LABORED.TOLERATING ROOMAIR ALL NIGHT .02 SAT @ 98%-100%.TOLERATED FEEDING ALL NIGHT NEPHRO @ 40 ML/HR.NO RESIDUAL NOTED.REPOSTIONED EVERY 2H.DRESSIGN TO COCCYX BOTH HIPS AND RIGHT HEEL INTACT.BOOTS TO BOTH HEELS IN PLACED.NO ASE NOTED FROM TOBRAMYCIN AND MERREM IV ATB.ON DROPLET PRECAUTION FOR COVID+.GOODHANDWASHING TECHNIQUE OBSERVED.ALL NEEDS MET,WILL CONTINUE TO MONITOR.
--- NOTE | 2020-06-06 05:56 | NUR ---
MORNING CARE RENDERED.BM X1 TO WATERY STOOL.GOOD PERICARE RENDERED.DRESSING TO COCCYX AND R HIP SOILED.CHANGED DRESSING AND SECURED WITH ISLAND DERESSING.REPOSITIONED.WILL CONTINUE TO MONITOR.
[2020-06-06 06:17] VITALS: BP 130/80
--- NOTE | 2020-06-06 08:00 | NUR ---
RECEIVED PATIENT AWAKE AND NON VERBAL. PATIENT IS WITH CONTRACTED EXTREMITES AND IS WITH SWELLING TO THE RIGHT ARM AND HAS A G TUBE FEEDING AND HAS BARRAGAN TO GRAVITY. PATIENT HAS A DILMA CATH IN PLACE TO THE CHEST WELL A CENTRAL LINE AND BOTH ARE PATENT. PATIENT IS FOR DIALYSIS TODAY AND HE HAS A PLAN AT SOME POINT TO TRANSFER TO A LTAC FOR CONTINUED ANTIBIOTICS AND WOUND CARE. PATEINT HAS NOT INDICATED HE HAS PAIN AND DRESSING TO THE WOUND TO THE SACRAL AND COCCYX INTACT. PATIENT HAD DEBRIDEMENT ND WOUND CARE CONTINUED. SRINATH HAS HEEL PROTECTORS IN PLACE AND HAS BEEN ON MERRIN AND TOBRAMYCIN AND DECADRON ORERED. PATIENT HAS PSEUDOMONAS TO THE WOUND AND BLOOD AND HAS BEEN COVID POSITVE. REMAINS IN ISOLATION INDICATED AND PATIENT HAS NOTED LABS OF THE CA AT 8.1,. PATIENT HAS VERY DIMINISHED BREATH SOUNDS AND HAS MINIMAL RESIDUAL WITH FEEDING. BARRAGAN IS CLOUDY URINE. SRINATH HAS BEEN ON C PAP AT NIGHT AND ROOM AIR DURING THE DAY. WILL CONTINUE TO MONITOR INDICATED. VITALS THIS AM AT 130/80, 97.6, 78, 18, 100%. AWAITING DIALYSIS AND POSSIBLE TRANSFER ORDERS .
[2020-06-06 08:55] LABS: CARBON DIOXIDE 30.5 mmol/L (21-32); CREATININE SERUM 2.1 mg/dL (0.7-1.3); MAGNESIUM 1.9 mg/dL (1.8-2.4); PHOSPHOROUS 2.7 mg/dL (2.5-4.9); POTASSIUM SERUM 3.7 mmol/L (3.5-5.1)
[2020-06-06 09:26] VITALS: BP 165/92
--- NOTE | 2020-06-06 11:41 | NUR ---
PATIENT SEEN BY THE RESIDENTS AND PLAN OF CARE HAS BEEN DISCUSSED [facility] ON TH EPHONE PRIOR. AWAITING PLACEMENT AND TRANSFER ORDERS.
[2020-06-06 12:20] LABS: BASOPHIL % 0 % (0-2); PLATELET COUNT 241 x10^3mcL (130-400); RED CELL DISTRIBUTION WIDTH 15.4 % (11.5-14.5)
--- NOTE | 2020-06-06 12:31 | NUR ---
DIALYSIS NURSE MISS EDWARDS AT BEDSIDE AND PREFORMING DIALYSIS. WILL CONTINUE TO MONITOR.
[2020-06-06 14:05] VITALS: BP 139/80
--- NOTE | 2020-06-06 15:05 | NUR ---
Follow-up Nutrition Assessment: 222T/B DEMETRICE ZAVALETA 54M HR Nursing triggers: appears underweight/malnourished, Tube feeding Dx: Respiratory failure, pyoglycemia PMHx: CVA x 4, HTN, ESRD Labs: (06/06) BG 259H, BUN 3H, Cr 1.7H, H/H 10/30L, Meds: Apresoline, Catapres, decadron, hydrochlorothiazide, Lopressor, Merrem, Nebcin, Prilosec PRN meds: hydralazine Diet: Nepro at 40ml/hr. TF infused: (06/06)360ml, (06/05)1000ml, (06/04) 240ml; avml. not meeting needs. Weights: (06/06) 60kg *no change since last visit Edema: edema to upper right extremity Last BM: 06/04 Skin: ulcer noted to both hips and sacrum, DTI to both heels Juma: 11 I/Os: (06/06) 710/500ml = 210ml, (06/05)2192/300ml = 1892ml, (06/04)290ml, (06/03)816/0ml = 816ml Per last RD Note (06/03): Pt was seen awake and lying in bed during visit. Per pt's RN, pt's tube feeding was infusing at 20ml/hr, and pt was tolerating tube feed with GRV=0ml. There was no BM and signs of GI distress according RN. Pt was transferred to . 222B later. Pt's current TF regimen at goal rate will provide a volume of 720ml, 1296kcal, 58 g protein, and 523.44ml free water meeting 72% of estimated kcal needs and 80% of estimated protein needs. RD Note (06/06): Per operative report (06/05), pt had skin debridement on 06/[address] Sharp. Per pt's primary RN, pt was tolerating his current tube feeding at goal rate 40ml/hr with no residuals. RN reported loose stool possibly d/t medication. Estimated Nutritional Needs Based on current body weight (60kg) Energy: 6003-9045 kcal/day (30-35 kcal/kg for ESRD on HD and wound healing) Protein: 72-84 g/day (1.2-1.4 g/kg for ESRD on HD and wound healing) Fluid: 1L + HD output or per MD Nutrition Diagnosis: (ongoing) 1. Increased energy and protein needs r/t increased kcal and protein expenditure and skin integrity a/e/b pt has ESRD on HD, ulcer to sacrum, and DTI to both heels. (ongoing, modified) 2. Inadequate energy intake r/t insufficient tube feeding infusion a/e/b average TF infusion of 533ml from 06/04-. Intervention 1. Continue Nepro at 40ml/hr as tolerate. At goal rate, it will provide a volume of 960ml, 1728kcal, 78g protein and 698ml free water meeting 96% of estimated kcal needs and 100% of estimated protein needs. 2. Continue Micheal BID for wound healing Monitor/Evaluate Goal: Pt meeting at least 75% of estimated needs via nutrition support Monitor: Nutrition support tolerance, Labs, GI function, Body weight, skin integrity F/U in 2-3 days as high risk 06/08-
--- NOTE | 2020-06-06 15:28 | NUR ---
DIALYSIS COMPLETED AND 2 LITERS REMOVED. PATIET IS IN NO ACUTE DISTRESS AT THIS TIME.
--- NOTE | 2020-06-06 17:37 | NUR ---
CHANGED DRESSING TO THE THREE SITES. THE ONE TO THE RIGHT SACRAL WAS BLEEDING AND PACKED AND PLACED A OPTIFOAM HEART O THE HIP AND PACKED WITH BETADINE PREMA POST CLEANING WITH WOUND CLEANSER. PATENT HAS NO WHINCING OR GRIMACING WITH THESE ACTIONS AND SEEMS TO HAVE TOLERATED WELL. PATIENT HAD A DARK ALMOST BLACK STOOL AND VERY LIQUID BUT STICKY. CLEANSED THE AREA AND CAREFUL NOT TO INTRODUCE ANY STOOL IN THE WOUND SITES. THE WOUND ON THE COCCYX NOT DEEP BUT IS STILL SHOWING MUSCLE AND SOME STRANDS OF YELLOW TISSUE. THE LEFT SACRAL IS ABOUT THE SAME DEPTH BUT THESE ARE NOT BLEEDING MUCH THE RIGHT SACRAL. PATIENT IS STATUS POST DEBRIDEMENT. HEEL DRESSING IS CLEAN AND DRY AND CONTINUED WITH THE BOOTS IN PLACE AND PATIENT MADE COMFORTABLE AND RESTARTED THE G TUBE FEEDING INDICATED. HAD HUNG THE TOBRAMYCIN AND SO FAR NO ADVERSE REACTIONS NOTED. NO RASHES OR REDNESS NOTED TO HTE ALOK AREA AND PATIENT HAS MINIMAL URINE OUTPUT WITH 2 LITERS FROM THE DIALYSIS NOTED.
[2020-06-06 18:07] VITALS: BP 135/84
--- NOTE | 2020-06-06 18:30 | NUR ---
WENT TO CHECK PATIENT THE DRESSING WAS CHANGED AND APPARENTLY THE 02 MONITOR WAS NOT WORKING THE PATIENT HAD BLOOD FROM THE THIGH TO THE UPPER BACK AND THE DRESSING JUST CHANGED AND PACKED LIBERALLY WAS SOAKED. PATIENT WAS THEN CLEANED AND STAFF APPLIED THE SURGISEAL TO THE AREA OF BLEEDING AND THEN REPACKED THE WOUND WITH FOUR BY FOURS AND THEN ABDS AND THEN OPTIFOAM AND TAPED TO SECURE. PATIENT TOLERATED WELL BUT CONCERN ABOUT THE PATIENT MAY CONTINUE TO BLEED. SECURED THE AREA WITH A CHUX AND A MAKE SHIFT DIAPER OF SORTS TO CONTAIN THE BLOOD IF FURTHER BLEEDING HAPPENED. CALLED THE CHARGE TO CALL THE RESIDENT FOR ASSISTANCE. THEY WILL SEE THE PATIENT WHEN THEY RETURN TO THE HOSPITAL. IN THE MEANTIME THE BLEEDING SEEMS TO HAVE SLOWED OR STOPPED WITH THE INTERVENTION. GAVE REPORT TO ON COMING STAFF AND CHECKED THE PATIENT AGAIN BEFORE SIGNING OFF. HE TOLERATED WELL.
--- NOTE | 2020-06-06 19:30 | NUR ---
RECEIVED PT FROM DAYSOKFT NURSE. PT IS AAOX0, NON-VERBAL, DEMONSTRATES NO S/S OF HEADACHE/DIZZINESS/NAUSEA. PT IS TELE #30, NSR, DENIES CHEST PAIN AT THIS TIME. PULSES ARE EQUAL AND BILATERAL, PT HAS EDDIE EDEMA, RECEIVING HEPARIN SQ PROHPYLAXIS. PT HAS DIMINISHED LUNG SOUNDS, ON RA, DEMONSTRATES NO S/S OF SOB. ABDOMEN IS SOFT AND ROUND, NO PAIN UPON PALPATION. NORMOACTIVE X4 QUADRANTS, LAST BM 06/05, LOOSE. PT HAS BARRAGAN CATHETER IN PLACE AND RECEIVED HEMODIALYSIS TODAY 06/04 2L OUTPUT. PT IS CONTRACTED BUE/BLE, BEDFAST. PT HAS WOUNDS TO BILATERAL HIPS, BILATERAL HEELS, AND SACRO-COCCYX AREA. WOUNDS HAVE PACKING IN PLACE, CDI AT THIS TIME. PT HAS CENTRAL LINE IN PLACE LEFT SUBCLAVIVAL, NO REDNESS OR SWELLING AT SITE. PT IS CALM AND COOPERATIVE AT THIS TIME. ALL COMFORT CARE ACCOUNTED FOR. BED IN LOWEST POSITION, CALL LIGHT WITHIN REACH. WILL CONTINUE TO MONITOR.
[2020-06-06 21:38] VITALS: BP 73/51
[2020-06-06 22:25] VITALS: BP 139/31
--- NOTE | 2020-06-06 23:18 | NUR ---
COMMUNICATED WITH DR REGARDING PATIENT'S BP.
--- NOTE | 2020-06-06 23:33 | NUR ---
PER RESIDENT WILL CONTINUE TO MONITOR BP AND COMMUNICATE NEXT READING.
[2020-06-07] VITALS (9 sets, daily range): BP systolic 78–129; BP diastolic 47–75
--- NOTE | 2020-06-07 01:59 | NUR ---
PATIENT IS CURRENTLY RESTING IN BED, NO ACUTE DISTRESS NOTED. HAVE BEEN MONITORING PATIENT'S BP, LATEST BP IS STABLE. I HAVE BEEN CONTINUING TO MONITOR PATIENT'S WOUND DRAINAGE. ALL COMFORT CARE ACCOUNTED FOR AT THIS TIME. BED IN LOWEST POSITION, CALL LIGHT WITHIN REACH. WILL CONTINUE TO MONITOR.
--- NOTE | 2020-06-07 04:40 | NUR ---
COMMUNICATED WITH DOCTOR REGARDING PATIENT'S CURRENT STATUS. DOCTOR WILL COMMUNICATED WITH DR RAYMOND REGARDING ACTIVE WOUND BLEEDING. PATIENT'S FEEDING HAS BEEN PUT ON HOLD FOR NOW DUE TO PATIENT'S GARGLING AND DESATURATION DURING WOUND CARE. BED OF HEAD HAS BEEN ELEVATED, PATIENT IS SATURATING HIGH 90S-100S. PATIENT HAS TWO HEATED BLANKETS ON, TEMPERATURE WAS 96.8. DOCTOR WILL ORDER FLUIDS TO HELP IMPROVE BLOOD PRESSURE. ALL COMFORT CARE ACCOUNTED FOR AT THIS TIME. BED IN LOWEST POSITION, CALL LIGHT WITHIN REACH. WILL CONTINUE TO MONITOR.
--- NOTE | 2020-06-07 06:33 | NUR ---
PER DR. MARTINEZ, BOLUSED PATIENT WITH 500ML NS. NEW BP 113/75 IN LOWER LEFT LEG. PATIENT'S TEMPERATURE STILL REMAINS HIGH 96s, LOW 97s. PATIENT REMAINS WITH TWO BLANKETS ON AND HEATER ON. ATTEMPTED TO CALL RESIDENT TO INFORM OF NEW VITAL SIGNS, WILL ATTEMPT TO PAGE THEM AGAIN BEFORE SHIFT ENDS, CHARGE NURSE IS AWARE, WILL COMMUNICATE WITH DAYSHIFT NURSE WELL. PATIENT'S WOUNDS REMAIN STABLE AT THIS TIME. DID ONE DRESSING CHANGE THROUGHOUT THE NIGHT, ALERTED PATIENT OF THE ACTIVE BLEEDING THAT WAS OCCURING. RESIDENT SAID HE WOULD CONTACT DR. RAYMOND IN THE MORNING. WOUNDS HAVE BEEN RECHECKED THIS MORNING, DRESSING REMAINS CDI AT THIS TIME. ALL COMFORT CARE ACCOUNTED FOR AT THIS TIME. BED IN LOWEST POSITION, CALL LIGHT WITHIN REACH. WILL CONTINUE TO MONITOR UNTIL APPROPRIATE TO ENDORSE TO DAYSHIFT NURSE.
--- NOTE | 2020-06-07 07:15 | NUR ---
GAVE REPORT TO DAYSHIFT NURSE. ALL QUESTIONS/CONCERNS ADDRESSED.
--- NOTE | 2020-06-07 08:00 | NUR ---
RECIEVED PATIENT ON NON REBREATHER FROM LAST NIGHT.PATIENT IS PALER THAN LAST NIGHT,WHEN STAFF LEFT AND STILL OUZING BLOOD FROM THE RIGHT SACRAL WOUND. DRESSING CHANGED AND PATIENT HAS DESATURATED WHILE THE PATIENT WAS LYING ON HIS SIDE. LUNGS ARE VERY DIMINISHED BUT NO REPORTED GURLING OR CONGESTION HEARD.PATIENT HAS EDEMA TO THE UPPER EXTREMITIES AND THE EXTREMITIS ARE COOL TO THE TOUCH. PATIENT HAS BARRAGAN BUT NO SIGNIFICANT OUTPUT NOTED. CONTINUED ON ISOLATION PROTOCAL FOR COVID ANDTHE HEPARIN WAS HELD DUE TO THE BLEEDING REPORTED AND STAFF HELD HIS FEEDING PER REPORT FOR GURGLING TO THE THROAT. NO RESIDUAL THAT MERITS TO HOLD NOW AND WILL RESTART INDICATED. VITALS AT THIS TIME AT 96.5, 99, 18,113/75, 100% ON NON REBREATHER. NOTED LABS SHOW NO SIGNIFICANT CHANGE IN HIS BLOOD LEVELS. CONTINUED ON DECADRON. TOBRAMYCIN AND MERREN. RIGHT QUINTENTO CHEST AND INTACT.
[2020-06-07 10:40] LABS: CALCIUM 7.9 mg/dL (8.5-10.1); CARBON DIOXIDE 30.9 mmol/L (21-32); CREATININE SERUM 1.8 mg/dL (0.7-1.3); POTASSIUM SERUM 3.3 mmol/L (3.5-5.1)
--- NOTE | 2020-06-07 11:00 | NUR ---
REPORTED THE H AND HO OF 5.03/09 AND WILL RETURN THE APPROPRIATE ORDERS,
[2020-06-07 11:26] LABS: PLATELET COUNT 246 x10^3mcL (130-400)
[2020-06-07 11:35] LABS: BASOPHIL % 0 % (0-2); RED CELL DISTRIBUTION WIDTH 15.1 % (11.5-14.5)
--- NOTE | 2020-06-07 12:00 | NUR ---
PATIENT WAS SEEN BY THE RSIDENT AND ORDERS GIVEN.
[2020-06-07 14:29] LABS: rbc morphology (normal/abnorm) NORMAL (NORMAL)
--- NOTE | 2020-06-07 14:50 | NUR ---
STARTED THE K RIDER AND THE BLOOD AND HAD GIVEN BENADRYL AND TYLENOL ORDERED. PATIENT IS LYING ON THE AFFECTED SIDE DIRRECTED AND WHEN THE DRESSING WAS CHANGED IT APPEARS THE SURGI STAT HAD FINALLY STOPPED THE BLEEDING FOR NOW.PATIENT HAD ANOTHER BLOOD DRAW AND WILL CONTINUE TO MONITOR WITH THE BLOOD INFUSION OF TWO UNITS. NO SATURATION OF THE DRESSING WHEN PATIENT HAD A STICKY DARK ALMOST BLACK STOOL AND DRESSING WERE CHANGED. SO FAR INTACT. PATIENT TOLERATED THE DRESSING CHANGE WELL. REPLACED THE HEMOSTATIC DRESSING TO THE AREA THAT HAD BEEN BLEEDING PRIOR AND WITTHE HEPARIN HELD AND THE PRESSURE TO HTE SITE HOPEFULLY NO FURTHER BLEEDING WILL OCCUR. NOTED THE HEMAGLOBIN AT 5.4/19. DR IS AWARE WELL SURGEON. VITALS STABLE AT 97., 93., 90/47, 20, 97% AND THEN AFTER THE FIRST FIFTEEN AT 97.3, 9, 100/53, 20, 100%.
--- NOTE | 2020-06-07 14:58 | NUR ---
PATIENT IS TOLERATING THE NPO STATUS AND NO SIGNS OF RESP[IRATORY DISTRESS NOTED. PATIE JUAN ALBERTO BEEN ON OXYMIZER AND REMAIN VERY DIMINISHED. MEDICATIONS GIVEN THE G TUBE TOLERATED WELL AND THERE IS MINIMAL RESIDUAL OF FLUID RETURN.
[2020-06-07 15:03] LABS: BILIRUBIN TOTAL 0.2 mg/dL (0.20-1.00); CALCIUM 7.9 mg/dL (8.5-10.1); CARBON DIOXIDE 27.5 mmol/L (21-32); CREATININE SERUM 1.8 mg/dL (0.7-1.3); POTASSIUM SERUM 3.7 mmol/L (3.5-5.1)
[2020-06-07 15:08] LABS: ALBUMIN 1.3 g/dL (3.4-5.0); TOTAL PROTEIN, SERUM 5.4 g/dL (6.4-8.2)
[2020-06-07 15:29] LABS: PLATELET COUNT 306 x10^3mcL (130-400)
[2020-06-07 15:41] LABS: BASOPHIL % 0 % (0-2); RED CELL DISTRIBUTION WIDTH 15.1 % (11.5-14.5)
[2020-06-07 16:20] LABS: rbc morphology (normal/abnorm) ABNORMAL (NORMAL)
--- NOTE | 2020-06-07 16:59 | NUR ---
ADVISED DR RAYMOND WHEN HE CALLED ABOUT THE PATIETN THAT THE BLEEDING HAS STOPPED. ADVISED WHAT WAS DONE AND THE LOW HEMAGLOBIN. HE WAS SATIFIED BUT WANTED TO KNOW WHY HE WAS NOT CALLED. CONTINUED ON FIRST UNIT OF BLOOD AND TOLERATED WELL SO FAR.
--- NOTE | 2020-06-07 19:32 | NUR ---
Pt. received from day shift, currently in bed resting. Pt. is a/o x0, nonverbal, hx of CVA and TIA. Pt. is breathing e/u on 4L via NC, no s/o SOB or acute distress, on cont. pulse ox and is on tele, NSR, no s/o chest pain. Pt. noted to have EDDIE non-pitting edema, pt. heparin held d/t bleeding risk. Pt. 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 Pt. also on HD, on a MWF schedule, last HD was on 06/06, 2L out last episode. Pt. R Steffen CAth, dressing in tact, no s/o active bleeding, pt. on a fitzpatrick, draining clear and yellow. Pt. noted to have contracted BUE/ BLE, and sacral coccyx and Jena Claude hips. 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 H/h low, given 2u of blood, second unit currently infusing at this time. Otherwise, pt. stable, left subclavical line in tact, will cont. to monitor. in dressing CDI and intact,
--- NOTE | 2020-06-07 21:45 | NUR ---
Pt. blood tranfusion finished at this time, no acute distress noted. Pt. VS stable, IV site patent and dressing in tact. Will cont. to monitor.
--- NOTE | 2020-06-07 22:00 | NUR ---
Pt. wound dressing in tact at this time, only slight amount of BM noted, all dressing in tact on coccyx region. No acute changes, will cont. to monitor.
--- NOTE | 2020-06-07 22:42 | NUR ---
MD called at this time, reported lump on stomach near the PEG tube placement. As per MD will order KUB at this time and will come and assess the Pt. RT also called at this time if they can do deep suctioning on pt. Pt. noted to be coughing up thick phlegm, o2 sat well at 99-100% on Oxymizer 8L. Will cont. to monitor.
[2020-06-08 00:17] LABS: PLATELET COUNT 266 x10^3mcL (130-400)
--- NOTE | 2020-06-08 00:17 | NUR ---
As per RT, weaned down pt. to 6L via Oxymizer
[2020-06-08 00:27] LABS: RED CELL DISTRIBUTION WIDTH 15.1 % (11.5-14.5)
[2020-06-08 00:42] LABS: BAND NEUTROPHIL 6 % (0-10); MONOCYTE 5 % (0-7); SEGMENTED NEUTROPHILS 80 % (37-75); rbc morphology (normal/abnorm) ABNORMAL (NORMAL)
--- NOTE | 2020-06-08 05:35 | NUR ---
Spoke to priyank FERNANDO to give IVP hydralizine at this time d/t elevated BP. Will cont. to monitor.
[2020-06-08 05:44] VITALS: BP 174/94
--- NOTE | 2020-06-08 05:50 | NUR ---
made MD aware of new WBC count at this time, will cont. to monitor.
--- NOTE | 2020-06-08 05:50 | NUR ---
Pt. throughout the night noted to be resting. RT called to see if suctioning would be beneficial, RT did some oral suctioning and weaned pt down to 6L via oxymizer. Pt. showed no s/o acute distress. Dressings in tact, no change needed. Minimal serosanguineous drainage noted on coccyx region and TUYET hip dressing in tact. Otherwise, pt. stable, will give hydralazine IVP at this time d/t elevated BP this AM. Will cont. to monitor and endorse care to next shif tRN.
--- NOTE | 2020-06-08 06:30 | NUR ---
Rechecked BP at this time, 138/80. Did not administer IVP hydralizine.
--- NOTE | 2020-06-08 07:30 | NUR ---
RECEIVED REPORT FROM SKY BRIAN. PT AAOX0. PT IS NONVERBAL. TELE #30, NO INDICATION OF CHEST PAIN. PT ON 6L OXYMIZER. NO SOB OR DISTRESS NOTED. PT HAS LEFT SUBCLAVICAL CENTRAL LINE, CDI AND PATENT. PT IS STABLE AT THIS TIME W/ NO DISTRESS NOTED. ALL SAFETY AND COMFORT MEASURES IN PLACE. BED IN LOW POSITION, 2 SIDE RAILS UP. CALL LIGHT WITH IN REACH. ALL QUESTIONS AND CONCERNS ADDRESSED. ALL NEEDS MET AT THIS TIME. WILL CONTINUE TO MONITOR PT.
--- NOTE | 2020-06-08 09:35 | NUR ---
RECEIVED CALL FROM DR MARIA RAYMOND. DR RAYMOND STATED OKAY TO RESUME FEEDING AND MEDICATIONS VIA GTUBE. ALL QUESTIONS AND CONCERNS ADDRESSED ALL NEEDS MET AT THIS TIME. WILL CONTINUE TO MONITOR PT.
--- NOTE | 2020-06-08 09:40 | NUR ---
SPOKE TO DR TIRADO. DR TIRADO STATED OKAY TO USE CENTRAL LINE FOR MEDICATIONS. ALL QUESTIONS AND CONCERNS ADDRESSED. ALL NEEDS MET AT THIS TIME. WILL CONTINUE TO MONITOR PT.
[2020-06-08 10:04] VITALS: BP 140/80
--- NOTE | 2020-06-08 11:41 | NUR ---
DR SANCHEZ NOTIFIED ABOUT BEING UNABLE TO GIVE PRILOSEC THROUGH [employer]. DR SANCHEZ STATED OKAY TO HOLD MEDICATION. ALL QUESTIONS AND CONCERNS ADDRESSED. ALL NEEDS MET AT THIS TIME. WILL CONTINUE TO MONITOR PT.
--- NOTE | 2020-06-08 12:10 | NUR ---
RESIDUAL CHECKED IN GTUBE, NO OUTPUT. WILL CONTINUE TO MONITOR PT.
[2020-06-08 12:48] VITALS: BP 144/79
[2020-06-08 16:22] VITALS: BP 95/64
--- NOTE | 2020-06-08 18:15 | NUR ---
DRESSING CHANGE DONE ON PT PER WOUND ORDERS. WOUND DRESSING CDI. PT REMAINED STABLE THROUGHOUT DRESSING CHANGE. ALL NEEDS MET AT THIS TIME. WILL CONTINUE TO MONITOR PT.
--- NOTE | 2020-06-08 19:30 | NUR ---
REPORT GIVEN TO TRAE RN. PT REMAINED STABLE THROUGHOUT MY SHIFT. ALL QUESTIONS AND CONCERNS ADDRESSED. ALL NEEDS MET AT THIS TIME. ALL CARES ENDORSED TO NIGHT RN.
[2020-06-08 21:51] VITALS: BP 124/87
[2020-06-09 05:29] VITALS: BP 122/77
[2020-06-09 07:26] LABS: PLATELET COUNT 222 x10^3mcL (130-400)
[2020-06-09 07:32] LABS: CALCIUM 8.1 mg/dL (8.5-10.1); CARBON DIOXIDE 25.9 mmol/L (21-32); CREATININE SERUM 1.7 mg/dL (0.7-1.3); POTASSIUM SERUM 4.4 mmol/L (3.5-5.1)
[2020-06-09 08:05] LABS: BASOPHIL % 0 % (0-2)
[2020-06-09 09:07] VITALS: BP 204/99
--- NOTE | 2020-06-09 09:50 | NUR ---
DOCTOR TIRADO AT [facility] AT BEDSIDE FOR AM ROUND. O2 OXIMIXER SWITCHED TO NRM PER DOCTOR TIRADO RECCOMMENDATION, O2SAT NOTED 96% AT THIS TIME. NON VERBAL. AAOX0. HX OF CVA AND TIA. ON TELE# 30 NSR. TUNNELLED CATHETER TO RIGHT CHEST FOR HD, DRSG CDI, TLC TO LT SUB CLAVIAN ALL PORTS FLUSHABLE,D RSG CDI. G TUBE FEEDING WITH NEPHRO ONGOING AT 40ML/HR WITH FWF 50ML Q 4HRS. DRSG TO SACRAL, BOTH HIPS, AND BOTH HEELS, DRY, INTACT. ON AIRLOSS MATTRESS. BLE OFFLOADED ON HEELS PROTECTORS. ON CONTACT/DROPLET ISOLATION. SIDERAILS UP X2.
[2020-06-09 11:47] VITALS: BP 144/66
--- NOTE | 2020-06-09 13:42 | NUR ---
Follow-up Nutrition Assessment: 222T/B DEMETRICE ZAVALETA 54M HR Dx: Respiratory failure, hypoglycemia PMHx: CVA x 4, HTN, ESRD Labs: (06/06) BG 156H, BUN 28H, Cr 1.7H, H/H 10.8/32L, WBC: 18.9H Meds: Apresoline, Catapres, decadron, hydrochlorothiazide, Lopressor, Merrem, Nebcin, Prilosec, Pro-amatine, heparin sodium, hydralazine Diet: Nepro at 40ml/hr. TF infused: (06/08): 400 ml (06/06)360ml, (06/05)1000ml, (06/04) 240ml; av mL (I/O summaries appear incomplete) Weights: (06/06) 60kg *no change since last visit (06/03): 60 kg Edema: Last BM: 06/08/20 Skin: sacral/coccygeal ulcer with minimal drainage, posterior R/L hip ulcer with minimal drainage, heel ecchymosis/bruise closed wound, L leg closed wound , ecchymosis/closed scabs noted to BLE Juma: 11 I/Os: (06/08-): 100/136 ml= -36 mL (06/06) 710/500ml = 210ml, (06/05)2192/300ml = 1892ml, (06/04)290ml, (06/03)816/0ml = 816ml *note I/O for 06/08- appear incomplete RD Note (06/06): Per operative report (06/05), pt had skin debridement on 06/[address] Sharp. Per pt's primary RN, pt was tolerating his current tube feeding at goal rate 40ml/hr with no residuals. RN reported loose stool possibly d/t medication. RD note (06/09): per progress note sepsis likely 2/2 aspiration PNA vs decubitus ulcer infection vs. COVID-19, acute hypoxic respiratory failure 2/2 respiration PNA VS COVID-19, severe protein calorie nutrition, ESRD on HD, stage 3 decubitus ulcer L hip, stage 4 pressure ulcer sacrum, normocytic anemia likely 2/2 ESRD Per pts' nurse, the tube feeding tube is smaller than usual and it is difficult for her to see if there is any GRV (the syringe will not suction anything up) but pt is tolerating EN. EN running at goal rate, GRV unknown. Estimated Nutritional Needs Based on current body weight (60kg) Energy: 9429-8512 kcal/day (30-35 kcal/kg for ESRD on HD and wound healing) Protein: 72-84 g/day (1.2-1.4 g/kg for ESRD on HD and wound healing) Fluid: 1L + HD output or per MD Nutrition Diagnosis: (ongoing) 1. Increased energy and protein needs r/t increased kcal and protein expenditure and skin integrity a/e/b pt has ESRD on HD, stage 3 decubitus ulcer L hip, stage 4 pressure ulcer sacrum (ongoing, modified) 2. Inadequate energy intake r/t insufficient tube feeding infusion a/e/b average TF infusion of 533ml from 06/04- (resolved, nurse reported TF running at goal rate and no interruptions in TF) Intervention 1. Continue Nepro at 40ml/hr as tolerated. At goal rate, it will provide a volume of 960ml, 1728kcal, 78g protein and 698ml free water meeting 96% of estimated kcal needs and 100% of estimated protein needs. 2. Continue Micheal BID for wound healing Monitor/Evaluate Goal: Pt meeting at least 75% of estimated needs via nutrition support (met, ongoing) Monitor: Nutrition support tolerance, Labs, GI function, Body weight, skin integrity F/U in 2-3 days as high risk 06/11-
--- NOTE | 2020-06-09 13:47 | NUR ---
Intervention 1. Continue Nepro at 40ml/hr as tolerated. At goal rate, it will provide a volume of 960ml, 1728kcal, 78g protein and 698ml free water meeting 96% of estimated kcal needs and 100% of estimated protein needs. 2. Continue Micheal BID for wound healing
[2020-06-09 13:52] VITALS: BP 163/84
--- NOTE | 2020-06-09 16:00 | NUR ---
CLEANSED BOTH HEELS, SACRALCOCCYX, RIGHT AND LEFT TROCHANTERS WOUNDS WITH NS, PAT DRY PACK WITH SOAKED BETADINE AND COVER WITH DRY DRESSING, HEELS PROTECTOR INPLACED AND KEPT OFFLOADED ON PILLOW. CONTINUE TO TURN AND REPOSITION Q 2HRS. KEPT HOB ELEVATED AT 30DEG. ON AIRLOSS MATTRESS. TOLERATED TO G TUBE FEEDING WITH NEPHRO AT 40ML/HR. SIDERAILS UP X2. WILL CONTINUE TO MONITOR.
--- NOTE | 2020-06-09 17:27 | NUR ---
CONSENT FOR CONVALESCENT PLASMA TRANSFUSION OBTAINED FROM PATIENT'S SPOUSE( HUBER ZAVALETA) VIA PHONE, VERIFIED WITH SNEHAL ELKINS.
[2020-06-09 17:30] VITALS: BP 177/98
--- NOTE | 2020-06-09 19:34 | NUR ---
RECEIVED PT FROM DAY SHIFT NURSE. PT A/OX0. NONVERBAL, HX OF CVA AND T/A. ON TELE#30 READING SINUS TACHYCARDIA AT 104 BPM. EDEMA TO EDDIE WITH 1+ PITTING EDEMA. RR EVEN AND UNLABORED ON 15L OXYMIZER SATING 100%. [place] CATH IN PLACE DRAINING YELLOW URINE BY GRAVITY. PT HAS PRESSURE ULCER TO BILATERAL HIPS, SACRAL COCCYX AREA, AND TO FOOT WITH BOOT ON. DRESSING CHANGE TODAY 06/09/ON AIR MATTRESS. NO SIGNS OF ACUTE DISTRESS, PAIN, OR SOB NOTED. PT HAS R IVORY CATH FOR HD AND LEFT SUBCLAVICAL CENTRAL LINE, PATENT AND INTACT. DROPLET/CONTACT PRECAUTIONS IN PLACE FOR COVID +. CALL LIGHT WITHIN REACH. BED IN LOWEST POSITION. WILL CONTINUE TO MONITOR.
[2020-06-09 22:11] VITALS: BP 154/75
--- NOTE | 2020-06-10 02:25 | NUR ---
PT SEEN DESATING INTO 70'S/HR DECREASING INTO 40'S. PT ON 15L NRB. RT PAGED AND ASSESSED PT. NOTIFIED. PATIENT BAGGED UNTIL TRANSFERED TO ICU. PT TRANSFERED TO ICU FOR BIPAP AT 0225. PT MOD CODE BIPAP ONLY.
--- NOTE | 2020-06-10 02:49 | NUR ---
TRANSFERRED PT WITH NO INCIDENT FROM ROOM 222 TO ICU 7. PT WAS OXYGENATED WITH AMBU BAG EN ROUTE.
--- NOTE | 2020-06-10 03:00 | NUR ---
PT SEEN DESATING INTO 70'S/HR DECREASING INTO 40'S. PT ON 15L NRB. RT PAGED AND ASSESSED PT. NOTIFIED. PATIENT BAGGED UNTIL TRANSFERED TO ICU. PT TRANSFERED TO ICU FOR BIPAP. PT MOD CODE BIPAP ONLY.
--- NOTE | 2020-06-10 03:09 | NUR ---
PT WAS TRANSFERRED IN FROM TELE FLOOR DUE TO DESATING ON NEEDS TO BE ON BIPAP. PT IS A MODIFIED DNR PER FAMILYS REQUEST AND ONLY NEEDS TO BE ON BIPAP. PT WAS PLACED IN BED COMFORTABLE AND RIGHT AFTER PT WAS PLACED ON BIPAP, PT BESS DOWN TO 30 THEN TO 20'S, FAMILY WAS CALLED AND NOTIFIED THEM OF PTS CONDITION AND THEY SAID THEY WILL COME AND SEE THE PT. DECICION MODIFIED DNR STILL THEIR CHOICE AT THIS POINT. AT 0253 PTS AND DAUGHTER CAME, HR WENT DOWN TO 17 TO ASYSTOLE, LAVON GOODEN WAS CALLED WITH THE FAMILY PRESENT. AT 0300, PT WAS PRONOUNCED BY ED MD. THEY SPOKE WITH AND DAUGHTER IN WHICH THEY VERBALIZED UNDERSTANDING OF THE SITUATION. FAMILY WAS THEN ALLOWED TO ENTER THE PTS ROOM DONNING PROPER PPE.
--- NOTE | 2020-06-10 03:12 | NUR ---
CALLED [facility] AT THIS TIME, CASE# [id number] SPOKE WITH MARSHALL, WILL NOT BE A CANDIDATE AT THIS TIME. PRIMARY RN MADE AWARE.
--- NOTE | 2020-06-10 03:17 | NUR ---
[facility] OFFICE CONTACTED AT THIS TIME, MARTIN MOTOR INSPECTION MECHANIC AT THIS TIME SAID REFRIGERATOR CABINETMAKER WILL CALL BACK. PRIMARY RN MADE AWARE.
--- NOTE | 2020-06-10 03:24 | NUR ---
SPOKE TO DEPUTY SETH FORBES ([facility]) AT THIS TIME. DEPUTY SAID IT OK TO RELEASE BODY AND TRANSFER PATIENT TO THE [facility] NO NEED FOR A NUMBER AT THIS TIME. POST MORTEM CARE RENDERED.
--- NOTE | 2020-06-10 03:51 | NUR ---
PT LEFT FOR THE [place] AT THIS TIME VIA [employer], ACCOMPANIED BY SECURITY. PT HAS NO BELONGING AT THIS TIME.
== END 2020-06-10 03:55 | disposition expired | DRG 853 ==
LOC: ED 07:35 → IC 10:39 → DU 10:39 → IC 06-01 20:44 → DU 06-03 13:40 → IC 06-10 02:27 → DU 06-10 03:06 → IC 06-10 03:16 → DU 06-10 03:26 → IC 06-10 03:35
PROVIDERS: Emergency Medicine; Surgery; ADMIT Family Medicine; ATTEND Family Medicine
PROC: 5A1D70Z Performance of Urinary Filtration, Intermittent, Less than 6 Hours Per Day (ICD-10-PCS; 2020-06-03)
PROC: 5A1D70Z Performance of Urinary Filtration, Intermittent, Less than 6 Hours Per Day (ICD-10-PCS; 2020-06-04)
PROC: 0JBQ0ZZ Excision of Right Foot Subcutaneous Tissue and Fascia, Open Approach (ICD-10-PCS; 2020-06-05)
PROC: 0JB70ZZ Excision of Back Subcutaneous Tissue and Fascia, Open Approach (ICD-10-PCS; 2020-06-05)
PROC: 02HV33Z Insertion of Infusion Device into Superior Vena Cava, Percutaneous Approach (ICD-10-PCS; 2020-06-05)
PROC: 0JBM0ZZ Excision of Left Upper Leg Subcutaneous Tissue and Fascia, Open Approach (ICD-10-PCS; 2020-06-05)
PROC: 0JBL0ZZ Excision of Right Upper Leg Subcutaneous Tissue and Fascia, Open Approach (ICD-10-PCS; 2020-06-05)
PROC: 30233N1 Transfusion of Nonautologous Red Blood Cells into Peripheral Vein, Percutaneous Approach (ICD-10-PCS; principal; 2020-06-05 19:00)
PROC: 5A1D70Z Performance of Urinary Filtration, Intermittent, Less than 6 Hours Per Day (ICD-10-PCS; 2020-06-06)
PROC: 5A1D70Z Performance of Urinary Filtration, Intermittent, Less than 6 Hours Per Day (ICD-10-PCS; 2020-06-08)
DX: A41.9 Sepsis, unspecified organism (principal); L89.154 Pressure ulcer of sacral region, stage 4; L89.223 Pressure ulcer of left hip, stage 3; J96.01 Acute respiratory failure with hypoxia; E43 Unspecified severe protein-calorie malnutrition; N18.6 End stage renal disease; J12.89 Other viral pneumonia; U07.1 COVID-19; G81.90 Hemiplegia, unspecified affecting unspecified side; E87.1 Hypo-osmolality and hyponatremia; N39.0 Urinary tract infection, site not specified; R13.10 Dysphagia, unspecified; D63.1 Anemia in chronic kidney disease; E11.22 Type 2 diabetes mellitus with diabetic chronic kidney disease; E11.65 Type 2 diabetes mellitus with hyperglycemia; Z90.49 Acquired absence of other specified parts of digestive tract; Z79.899 Other long term (current) drug therapy; Z83.3 Family history of diabetes mellitus; Z99.2 Dependence on renal dialysis; Z86.73 Personal history of transient ischemic attack (TIA), and cerebral infarction without residual deficits; Z74.01 Bed confinement status; Z68.25 Body mass index [BMI] 25.0-25.9, adult; I46.9 Cardiac arrest, cause unspecified; E87.6 Hypokalemia
CPT/HCPCS: 36600; 82962; 85378; C9113; G0378; J0360; J0456; J0696; J1100; J1610; J1644; J1815; J2185; J2250; J2405; J2543; J2704; J3260; J3370; J3480; J3490; J7030; J7040; J7050; J7060; J7120; P9016; Q0092; Q0163; U0003-CS